=== PATIENT | female | born 1955 | race Hispanic/Latino ===

== ENCOUNTER 2018-01-04 08:42 | Outpatient (CLI) | payer BC ==
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
[2018-01-08] MEDS ORDERED: Sodium Chloride 0.9% 15 ML NEB ONE (16:47)
[2018-01-08] MEDS ORDERED: Lidocaine 2% Jelly 5 ML TUBE ONE (16:47)
== END 2018-01-04 08:43 | disposition home or self-care (01) ==
LOC: WCC 08:42
PROVIDERS: ATTEND Family Medicine
DX: L97.519 Non-pressure chronic ulcer of other part of right foot with unspecified severity (principal); J45.909 Unspecified asthma, uncomplicated; I10 Essential (primary) hypertension
CPT/HCPCS: 11042; 99203; A4218; G0463

== ENCOUNTER 2018-01-18 10:07 | Outpatient (CLI) | payer BC ==
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
== END 2018-01-18 10:08 | disposition home or self-care (01) ==
LOC: WCC 10:07
PROVIDERS: ATTEND Family Medicine
DX: L97.519 Non-pressure chronic ulcer of other part of right foot with unspecified severity (principal); I10 Essential (primary) hypertension; Z87.09 Personal history of other diseases of the respiratory system
CPT/HCPCS: 11042

== ENCOUNTER 2018-01-25 09:40 | Outpatient (CLI) | payer BC ==
[~2018-01-25 09:40] MED LIST: Lidocaine 2% Jelly 5 ML TUBE ONE; Sodium Chloride 0.9% 15 ML NEB ONE
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
== END 2018-01-25 09:41 | disposition home or self-care (01) ==
LOC: WCC 09:40
PROVIDERS: ATTEND Family Medicine
DX: L97.519 Non-pressure chronic ulcer of other part of right foot with unspecified severity (principal); T25.021D Burn of unspecified degree of right foot, subsequent encounter; T79.9XXD Unspecified early complication of trauma, subsequent encounter; I10 Essential (primary) hypertension; Z87.09 Personal history of other diseases of the respiratory system
CPT/HCPCS: 11042; A4218

== ENCOUNTER 2023-01-03 10:11 | Observation (INO) | payer MEDICARE ==
[2023-01-03 11:02] LABS: #Eosinphils 0.1 thou/uL (0.0-0.7); #Lymphocytes 2.5 thou/uL (1.20-3.40); #Monocytes 0.5 thou/uL (0.11-0.59); #Neutrophils 3.6 thou/uL (1.40-6.50); %Basophils 0.6 % (0.0-1.0); %Eosinophils 1.3 % (0.0-10.0); %Lymphocytes 37.1 % (21.0-51.0); %Monocytes 7.4 % (0.0-10.0); %Neutrophils 53.7 % (42.0-75.0); Mean Corpuscular HGB CONC 33.1 g/dL (32.0-36.0); Mean Corpuscular Hemoglobin 31.8 pg (27.0-31.0); Mean Platelet Volume 9.8 fL (7.4-10.4); Platelet Count 137 10x3/uL (130-400); RBC Distribution Width 11.3 % (11.5-14.5); Red Blood Cell (RBC) Count 5.04 mill/uL (4.20-5.40); White Blood Cell (WBC) Count 6.7 10x3/uL (4.8-10.8)
[2023-01-03 11:23] LABS: ALT (SGPT) 53 U/L (8-55); AST (SGOT) 46 U/L (5-34); Albumin 4.3 g/dL (3.4-4.8); Alkaline Phosphatase 106 U/L (40-110); Anion Gap 15 mmol/L (10-20); BUN (Urea Nitrogen) 16 mg/dL (9.8-20.1); Bilirubin, Total 1.5 mg/dL (0.2-1.2); Calc. Creatinine Clearance 0 mL/min (70-130); Calcium 9.1 mg/dL (7.8-10.44); Carbon Dioxide 20 mmol/L (23-31); Chloride 110 mmol/L (98-107); Estimated GFR 76; Globulin 3.7 g/dL (2.4-3.5); Glucose 117 mg/dL (80-115); Lipase 37 U/L (8-78); Potassium 3.6 mmol/L (3.5-5.1); Sodium 141 mmol/L (136-145)
[2023-01-03 14:45] LABS: Troponin I 0.112 ng/mL (< 0.028)
[2023-01-03] MEDS ORDERED: Nitroglycerin 2% Ointment 1 INCH/1 GM Packet ONE (15:17)
[2023-01-03] MEDS ORDERED: Aspirin Chewable 81 MG TAB ONE (15:17)
[2023-01-03] MEDS ORDERED: Losartan 25 MG TAB PO SCH (15:30)
[2023-01-03 17:13] LABS: Troponin I 0.088 ng/mL (< 0.028)
[2023-01-03] MEDS ORDERED: Nitroglycerin 0.4 MG TAB (25 Tab Bottle) SL PRN (17:51)
[2023-01-03] MEDS ORDERED: Acetaminophen 325 MG TAB PO PRN (17:51)
[2023-01-03] MEDS ORDERED: Ondansetron PF 4 MG/2 ML Vial IVP PRN (17:51)
[2023-01-03] MEDS ORDERED: Ondansetron ODT 4 MG TAB PO PRN (17:51)
[2023-01-03 18:19] VITALS: BMI 29.6
[2023-01-03] MEDS ORDERED: Electrolyte Replacement Protocol 1 EACH FS SCH (18:45)
[2023-01-03] MEDS ORDERED: Acetaminophen 500 MG TAB PO SCH (19:00)
[2023-01-03 19:52] LABS: Troponin I 0.052 ng/mL (< 0.028)
[2023-01-03 20:52] LABS: Troponin I 0.042 ng/mL (< 0.028)
[2023-01-03 21:47] LABS: Magnesium 1.9 mg/dL (1.6-2.6)
[2023-01-03] MEDS: Nitroglycerin 2% Ointment 1 INCH/1 GM Packet TOP SCH (22:43)
[2023-01-04 05:40] LABS: Hemoglobin A1c 5.4 % (4.0-6.0)
[2023-01-04 06:00] LABS: #Basophils 0.1 thou/uL (0.0-0.2); #Eosinphils 0.2 thou/uL (0.0-0.7); #Lymphocytes 2.5 thou/uL (1.20-3.40); #Monocytes 0.5 thou/uL (0.11-0.59); #Neutrophils 3.7 thou/uL (1.40-6.50); %Basophils 0.8 % (0.0-1.0); %Lymphocytes 35.6 % (21.0-51.0); %Monocytes 7.5 % (0.0-10.0); Hemoglobin 14.7 g/dL (12.0-16.0); Mean Corpuscular HGB CONC 34.3 g/dL (32.0-36.0); Mean Corpuscular Volume 96.2 fl (78.0-98.0); Mean Platelet Volume 10.8 fL (7.4-10.4); Platelet Count 102 10x3/uL (130-400); RBC Distribution Width 11.3 % (11.5-14.5); Red Blood Cell (RBC) Count 4.46 mill/uL (4.20-5.40); White Blood Cell (WBC) Count 6.9 10x3/uL (4.8-10.8)
[2023-01-04 06:01] LABS: ALT (SGPT) 43 U/L (8-55); AST (SGOT) 42 U/L (5-34); Albumin 3.4 g/dL (3.4-4.8); Alkaline Phosphatase 87 U/L (40-110); Anion Gap 15 mmol/L (10-20); BUN (Urea Nitrogen) 16 mg/dL (9.8-20.1); Calc. Creatinine Clearance 79 mL/min (70-130); Calcium 8.7 mg/dL (7.8-10.44); Carbon Dioxide 17 mmol/L (23-31); Cardiac Risk 4.7 (Less than 4.5); Chloride 111 mmol/L (98-107); Cholesterol 211 mg/dl (< 200 Desired); Estimated GFR 82; Globulin 3.2 g/dL (2.4-3.5); Glucose 112 mg/dL (80-115); HDL Cholesterol 45 mg/dL (>60 Neg Risk); LDL Cholesterol, Calculated 146 mg/dL; Potassium 3.7 mmol/L (3.5-5.1); Protein, Total 6.6 g/dL (5.8-8.1); Sodium 139 mmol/L (136-145); Triglycerides 98 mg/dL (Less than 150)
[2023-01-04] MEDS: Nitroglycerin 2% Ointment 1 INCH/1 GM Packet TOP SCH ×2 (06:29→13:02)
[2023-01-04] MEDS ORDERED: Magnesium 2 GM/50 ML(in water) 2 GM in Premix Bag 1 BAG IVPB SCH (08:00)
[2023-01-04] MEDS ORDERED: Aspirin Chewable 81 MG TAB PO SCH (09:00)
[2023-01-04] MEDS ORDERED: Regadenoson 0.4 MG/5 ML SYRINGE ONE (09:04)
[2023-01-04] MEDS ORDERED: Valsartan 80 MG TAB PO SCH (15:15)
[2023-01-04 16:19] VITALS: BP 144/68; TEMP 98.4
[2023-01-04] MEDS ORDERED: Rosuvastatin 20 MG TAB PO SCH (21:00)
[2023-01-05] MEDS ORDERED: Valsartan 80 MG TAB PO SCH (09:00)
== END 2023-01-04 17:01 | disposition home or self-care (01) ==
LOC: ERS 10:11 → 2SW 15:49
PROVIDERS: ADMIT Family Medicine; ATTEND Family Medicine
DX: R07.89 Other chest pain (principal); F41.8 Other specified anxiety disorders; I16.0 Hypertensive urgency; I10 Essential (primary) hypertension; E78.5 Hyperlipidemia, unspecified; J45.909 Unspecified asthma, uncomplicated; E80.6 Other disorders of bilirubin metabolism; M19.90 Unspecified osteoarthritis, unspecified site; Z86.16 Personal history of COVID-19; Z79.899 Other long term (current) drug therapy; Z20.822 Contact with and (suspected) exposure to COVID-19
CPT/HCPCS: 71045; 78452; 80053; 80061; 82248; 83036; 83690; 83735; 84484 ×2; 85025; 93005; 93017; 94760 ×2; 96375; 99285; A9500; G0378 ×3; U0003; U0005; 36415; 84443; 93010; J2785; J3475